=== PATIENT | male | born 1980 | race Caucasian/White ===

== ENCOUNTER 2023-12-31 11:54 | Emergency (ER) | payer OTHER ==
[~2023-12-31] VITALS: Ht 180.3 cm; Wt 164.2 kg
[2023-12-31 12:02] VITALS: BP 122/81; PULSE 103; RESP 18; TEMP 98.7; O2SAT 97
[2023-12-31] MEDS ORDERED: CETI10SG1 PO (12:48)
[2023-12-31] MEDS ORDERED: SODI1PAC10 NS (12:48)
[2023-12-31 13:28] LABS: FLU A ANTIGEN negative (NEGATIVE); FLU B ANTIGEN negative (NEGATIVE)
== END 2023-12-31 12:55 | disposition home or self-care (01) ==
LOC: MED 11:54
DX: H69.92 Unspecified Eustachian tube disorder, left ear (principal); R09.81 Nasal congestion; J34.89 Other specified disorders of nose and nasal sinuses; Z20.822 Contact with and (suspected) exposure to COVID-19; Z79.899 Other long term (current) drug therapy
CPT/HCPCS: 99283

== ENCOUNTER 2024-01-05 10:16 | Emergency (ER) | payer OTHER ==
[~2024-01-05] VITALS: Ht 180.3 cm; Wt 165.6 kg
[~2024-01-05 10:16] MED LIST: CETI10SG1 PO; SODI1PAC10 NS
[2024-01-05 10:37] VITALS: BP 107/69; PULSE 83; RESP 18; TEMP 96.3; O2SAT 98
[2024-01-05 12:05] VITALS: BP 110/72; PULSE 86; RESP 18; TEMP 97.3; O2SAT 98
== END 2024-01-05 12:05 | disposition home or self-care (01) ==
LOC: MED 10:16
DX: F41.9 Anxiety disorder, unspecified (principal); R07.89 Other chest pain; I10 Essential (primary) hypertension; Z79.899 Other long term (current) drug therapy
CPT/HCPCS: 93005; 99283

== ENCOUNTER 2024-01-27 17:46 | Emergency (ER) | payer OTHER ==
[~2024-01-27] VITALS: Ht 180.3 cm; Wt 165.6 kg
[2024-01-27 17:49] VITALS: BP 121/80; PULSE 88; RESP 22; TEMP 97.5; O2SAT 100
[2024-01-27] MEDS ORDERED: ALUMINUM HYD/MAG/SIMETHICONE 30 ML UDC ONE (18:20)
[2024-01-27] MEDS ORDERED: DICYCLOMINE HCL LIQUID 10 MG/5 ML UDC ONE (18:20)
[2024-01-27] MEDS: DICYCLOMINE HCL LIQUID 20 MG, ALUMINUM HYD/MAG/SIMETHICONE 30 ML, LIDOCAINE VISCOUS 2% ... PO ONE (18:23)
[2024-01-27] MEDS: ALUMINUM HYD/MAG/SIMETHICONE 30 ML UDC PO ONE (18:23)
[2024-01-27] MEDS: FAMOTIDINE 20 MG TAB PO ONE (18:24)
[2024-01-27] MEDS ORDERED: ONDA-188 PO (19:01)
[2024-01-27 19:08] VITALS: BP 121/80; PULSE 88; RESP 22; TEMP 97.5; O2SAT 100
== END 2024-01-27 19:08 | disposition home or self-care (01) ==
LOC: MED 17:46
DX: R11.0 Nausea (principal); R10.9 Unspecified abdominal pain; R42 Dizziness and giddiness; I10 Essential (primary) hypertension; Z79.899 Other long term (current) drug therapy
CPT/HCPCS: 82948; 99284

== ENCOUNTER 2024-02-21 21:27 | Emergency (ER) | payer OTHER ==
[~2024-02-21] VITALS: Ht 180.3 cm; Wt 166.5 kg
[~2024-02-21 21:27] MED LIST changes: +CEPH-588 PO; +ONDA-188 PO
[2024-02-21 21:31] VITALS: BP 153/91; PULSE 92; RESP 18; TEMP 97.7; O2SAT 95
[2024-02-21 22:20] LABS: BASOPHILS % (AUTO) 0.4 % (0.0-2.0); EOSINOPHILS # (AUTO) 0.3 K/uL (0-0.4); HEMATOCRIT 42.1 % (36-52); HEMOGLOBIN 14.2 g/dL (12.0-18.0); LYMPHOCYTES # (AUTO) 2.7 K/uL (2.0-11.5); LYMPHOCYTES % (AUTO) 28.1 % (20.5-51.1); MEAN CORPUSCULAR HEMOGLOBIN 30 pg (27-31); MEAN CORPUSCULAR HGB CONC 34 g/dL (33-37); MEAN CORPUSCULAR VOLUME 89.7 fL (80-94); MONOCYTES # (AUTO) 0.9 K/uL (0.8-1.0); MONOCYTES % (AUTO) 9.8 % (1.7-9.3); NEUTROPHILS # (AUTO) 5.6 K/uL (1.8-7.7); NEUTROPHILS % (AUTO) 58.7 % (42.2-75.2); PLATELET COUNT (AUTO) 327 K/uL (140-450); RED CELL DISTRIBUTION WIDTH 14.3 % (11.6-13.7); WHITE BLOOD COUNT (AUTO) 9.6 K/uL (4.8-10.8)
[2024-02-21 22:33] LABS: ANION GAP 11.3 (8-16); CALCIUM 9.1 mg/dL (8.5-10.1); CREATININE 0.8 mg/dL (0.6-1.3); POTASSIUM 4.3 mmol/L (3.5-5.1)
[2024-02-21 22:41] LABS: ALANINE AMINOTRANSFERASE 18 U/L (12-78); ALBUMIN 3.6 g/dL (3.4-5.0); ALKALINE PHOSPHATASE 60 U/L (50-136); ASPARTATE AMINOTRANSFERASE 11 U/L (15-37); BILIRUBIN,DIRECT 0.1 mg/dL (0.0-0.3); TOTAL BILIRUBIN 0.4 mg/dL (0.0-1.0); TOTAL PROTEIN, SERUM 7.4 g/dL (6.4-8.2)
[2024-02-21 22:44] VITALS: BP 132/74; PULSE 76; RESP 12
[2024-02-21 22:44] LABS: INR 0.94 (0.8-1.2); PARTIAL THROMBOPLASTIN TIME 25.9 secs (22-35.6); PROTHROMBIN TIME 9.9 secs (10.8-13.4)
[2024-02-21] MEDS: LORazepam 1 MG TAB PO ONE (23:14)
[2024-02-21 23:35] VITALS: O2SAT 98
[2024-02-22] MEDS ORDERED: HYDR25CA1 PO (00:17)
== END 2024-02-22 00:25 | disposition home or self-care (01) ==
LOC: MED 21:27
DX: F41.9 Anxiety disorder, unspecified (principal); I10 Essential (primary) hypertension; Z79.1 Long term (current) use of non-steroidal anti-inflammatories (NSAID); Z79.2 Long term (current) use of antibiotics; Z79.899 Other long term (current) drug therapy
CPT/HCPCS: 36415; 71045; 80048; 80076; 83880; 84484; 85025; 85379; 85610; 85730; 93005; 99285; Q0092

== ENCOUNTER 2024-03-16 10:46 | Emergency (ER) | payer OTHER ==
[~2024-03-16] VITALS: Ht 180.3 cm; Wt 165.6 kg
[~2024-03-16 10:46] MED LIST changes: +HYDR25CA1 PO
[2024-03-16 10:56] VITALS: BP 134/82; PULSE 74; RESP 20; TEMP 97.5; O2SAT 98
[2024-03-16] MEDS ORDERED: ALUMINUM HYD/MAG/SIMETHICONE 30 ML UDC ONE (11:47)
[2024-03-16] MEDS ORDERED: DICYCLOMINE HCL LIQUID 10 MG/5 ML UDC ONE (11:47)
[2024-03-16] MEDS: ONDANSETRON 4 MG ODT PO ONE (11:52)
[2024-03-16] MEDS: DICYCLOMINE HCL LIQUID 20 MG, ALUMINUM HYD/MAG/SIMETHICONE 30 ML, LIDOCAINE VISCOUS 2% ... PO ONE (11:53)
[2024-03-16] MEDS: PANTOPRAZOLE 40 MG TABEC PO ONE (11:57)
[2024-03-16 13:32] VITALS: O2SAT 98
[2024-03-16 14:05] LABS: APPEARANCE,URINE CLEAR (CLEAR); COLOR,URINE YELLOW (YELLOW)
[2024-03-16 14:06] LABS: PROTEIN,URINE NEGATIVE (NEGATIVE)
[2024-03-16 14:07] LABS: BILIRUBIN,URINE NEGATIVE (NEGATIVE); BLOOD, URINE NEGATIVE (NEGATIVE); LEUKOCYTE ESTERASE ,URINE NEGATIVE (NEGATIVE); NITRITE, URINE NEGATIVE (NEGATIVE); UGLUCOSE NEGATIVE (NEGATIVE); UROBILINOGEN,URINE 0.2 EU/dL (0.2 - 1)
[2024-03-16] MEDS ORDERED: MAG355OR2 PO (14:10)
[2024-03-16] MEDS ORDERED: FAMO-90 PO (14:10)
[2024-03-16 14:21] VITALS: BP 136/81; PULSE 71; RESP 18; TEMP 98.2; O2SAT 97
== END 2024-03-16 14:46 | disposition home or self-care (01) ==
LOC: MED 10:46
DX: K29.70 Gastritis, unspecified, without bleeding (principal); I10 Essential (primary) hypertension; F41.9 Anxiety disorder, unspecified; Z79.899 Other long term (current) drug therapy
CPT/HCPCS: 81003; 99284; Q0162

== ENCOUNTER 2024-05-14 09:23 | Emergency (ER) | payer OTHER ==
[~2024-05-14] VITALS: Ht 180.3 cm; Wt 150.6 kg
[~2024-05-14 09:23] MED LIST changes: +FAMO-90 PO; +MAG355OR2 PO
[2024-05-14 09:26] VITALS: BP 123/73; PULSE 81; RESP 15; TEMP 97.9; O2SAT 100
--- NOTE | 2024-05-14 09:33 | NUR ---
to bed 8.
--- NOTE | 2024-05-14 09:35 | NUR ---
DANETTE Resednez evaluating patient at bedside.
[2024-05-14 09:37] VITALS: BP 127/73; PULSE 63; RESP 20; TEMP 97.8; O2SAT 98
--- NOTE | 2024-05-14 09:39 | NUR ---
43,M PRESENTED TO ER AMBULATORY. A/O X4. VSS ON RA. AFEBRILE. RESPIRATION EVEN AND UNLABORED. CLEAR BREATH SOUNDS. NO PALLOR OR CYANOSIS CC: SORE THROAT X 3 DAYS, CHILLS, FEVER, RUNNY NOSE AND CONGESTION, OCCASIONAL DRY COUGH. SELF MEDICATED WITH NYQUIL LAST TAKEN LAST NIGHT THAT "PUT HIM TO SLEEP". HX: VAPING X 1 YEAR, HTN ON LISINOPRIL 5MG QD.
[2024-05-14] MEDS ORDERED: BENZ-300 PO (09:40)
[2024-05-14] MEDS: IBUPROFEN 400 MG TAB PO ONE (09:43)
[2024-05-14] MEDS: ACETAMINOPHEN EXTRA STRENGTH 500 MG TAB PO ONE (09:44)
--- NOTE | 2024-05-14 10:06 | NUR ---
Patient discharged with v/s stable. Written and verbal after care instructions given. Patient alert, oriented and verbalized understanding of instructions. Ambulatory with steady gait. All questions addressed prior to discharge. ID band removed. Patient advised to follow up with PMD. Rx of Cepacol Sore Throat Lozenges given. Opportunity to ask questions provided and answered.
--- NOTE | 2024-05-14 10:11 | NUR ---
Chart checked and completed. The patient's care was reviewed and supervised by MORALES ARCHER RN.
[2024-05-14 10:14] LABS: FLU A ANTIGEN negative (NEGATIVE); FLU B ANTIGEN negative (NEGATIVE)
== END 2024-05-14 10:06 | disposition home or self-care (01) ==
LOC: MED 09:23
DX: J06.9 Acute upper respiratory infection, unspecified (principal); Z20.822 Contact with and (suspected) exposure to COVID-19; I10 Essential (primary) hypertension; Z71.6 Tobacco abuse counseling; Z79.899 Other long term (current) drug therapy
CPT/HCPCS: 99283